=== PATIENT | male | born 1975 | race American Indian/Alaskan Native ===

== ENCOUNTER 2020-04-22 23:09 | Emergency (ER) | payer SELFPAY ==
[2020-04-22 23:33] VITALS: BP 147/84
--- NOTE | 2020-04-22 23:36 | Emergency Department Report ---
ED ENT HPI - General Chief complaint: Dental/Oral Stated complaint: TOOTHACHE Time Seen by Provider: 04/22/20 23:32 Source: patient Mode of arrival: Ambulatory Limitations: No Limitations - History of Present Illness Initial comments: Patient is a 44-year-old male presents emergency room with complaints of left lower dental pain that began approximately a week ago. He states he has noticed a small amount of left lower swelling. He denies any fever, nausea, vomiting, diarrhea, difficulty swallowing, difficulty breathing. He states that he has not seen a dentist in approximately a year or 2. He states that he has an appointment with a dentist but was unable to get in until next week. No past medical history. No allergies to medications. - Related Data Previous Rx's Medication Instructions Recorded Last Taken Type Chlorhexidine Mouthwash [Peridex] 15 ml MM BID #1 bottle 04/22/20 Unknown Rx Naproxen [EC-Naprosyn] 500 mg PO BID PRN #20 tablet. 04/22/20 Unknown Rx Penicillin Vk [Veetids TAB] 500 mg PO QID 7 Days #56 tablet 04/22/20 Unknown Rx Allergies Allergy/AdvReac Type Severity Reaction Status Date / Time No Known Allergies Allergy Unverified 04/22/20 23:33 ED Dental HPI - General Chief complaint: Dental/Oral Stated complaint: TOOTHACHE Time Seen by Provider: 04/22/20 23:32 Source: patient Mode of arrival: Ambulatory Limitations: No Limitations - Related Data Previous Rx's Medication Instructions Recorded Last Taken Type Chlorhexidine Mouthwash [Peridex] 15 ml MM BID #1 bottle 04/22/20 Unknown Rx Naproxen [EC-Naprosyn] 500 mg PO BID PRN #20 tablet. 04/22/20 Unknown Rx Penicillin Vk [Veetids TAB] 500 mg PO QID 7 Days #56 tablet 04/22/20 Unknown Rx Allergies Allergy/AdvReac Type Severity Reaction Status Date / Time No Known Allergies Allergy Unverified 04/22/20 23:33 ED Review of Systems ROS: Stated complaint: TOOTHACHE Other details as noted in HPI Comment: All other systems reviewed and negative ED Past Medical Hx - Past Medical History Previous Medical History?: No - Surgical History Past Surgical History?: No - Social History Smoking Status: Current Every Day Smoker Substance Use Type: None - Medications Home Medications: Home Medications Medication Instructions Recorded Confirmed Last Taken Type Chlorhexidine Mouthwash [Peridex] 15 ml MM BID #1 bottle 04/22/20 Unknown Rx Naproxen [EC-Naprosyn] 500 mg PO BID PRN #20 tablet. 04/22/20 Unknown Rx Penicillin Vk [Veetids TAB] 500 mg PO QID 7 Days #56 tablet 04/22/20 Unknown Rx ED Physical Exam - General Limitations: No Limitations General appearance: alert, in no apparent distress - Head Head exam: Present: atraumatic, normocephalic - Eye Eye exam: Present: normal appearance - ENT ENT exam: Present: normal orophraynx, mucous membranes moist, other (poor dentition, there are several dental caries/missing teeth, there is a dental scott present to the left lower back molar, there is edema and induration of the gumline, no fluctuance, no signficant facial edema, no trismus, no tonuge elevation, no muffled voice, no submandibular edema) ED Course Vital Signs 04/22/20 23:29 Temperature 98.2 F Pulse Rate 68 Respiratory 18 Rate Blood Pressure 147/84 O2 Sat by Pulse 96 Oximetry ED Medical Decision Making - Medical Decision Making Patient is a 44-year-old male presents emergency room with complaints of left lower dental pain that began approximately a week ago. He states he has noticed a small amount of left lower swelling. He denies any fever, nausea, vomiting, diarrhea, difficulty swallowing, difficulty breathing. He states that he has no t seen a dentist in approximately a year or 2. He states that he has an appointment with a dentist but was unable to get in until next week. No past medical history. No allergies to medications. VSS. on exam:poor dentition, there are several dental caries/missing teeth, there is a dental scott present to the left lower back molar, there is edema and induration of the gumline, no fluctuance, no signficant facial edema, no trismus, no tonuge elevation, no muffled voice, no submandibular edema. Examination appears consistent with early dental abscess, no signs of facial cellulitis, facial abscess, Ludwigs at this time. Patient given prescription for penicillin VK, chlorhexidine mouthwash, and naproxen. Advised patient Please use medication as prescribed. Please follow-up with a dentist. It is very important that you follow-up with a dentist. Return to emergency room for any worsening symptoms. Critical care attestation.: If time is entered above; I have spent that time in minutes in the direct care of this critically ill patient, excluding procedure time. ED Disposition Clinical Impression: Dental caries, Dental abscess Disposition: TO HOME OR SELFCARE Is pt being admited?: No Does the pt Need Aspirin: No Condition: Stable Instructions: Dental Abscess, [id number] Additional Instructions: Please use medication as prescribed. Please follow-up with a dentist. It is very important that you follow-up with a dentist. Return to emergency room for any worsening symptoms. Prescriptions: Naproxen [EC-Naprosyn] 500 mg PO BID PRN #20 tablet. PRN Reason: pain Chlorhexidine Mouthwash [Peridex] 15 ml MM BID #1 bottle Penicillin Vk [Veetids TAB] 500 mg PO QID 7 Days #56 tablet Referrals: your, dentist [Other] - 3-5 Days Time of Disposition: 23:35 Print Language: [id number]
== END 2020-04-22 23:46 | disposition home or self-care (01) ==
LOC: ED 23:09
DX: K02.9 Dental caries, unspecified (principal); K04.7 Periapical abscess without sinus; F17.200 Nicotine dependence, unspecified, uncomplicated; Z79.899 Other long term (current) drug therapy
CPT/HCPCS: 99282